=== PATIENT | female | born 1940 | race Caucasian/White ===

== ENCOUNTER 2017-10-27 05:04 | Inpatient (IN) ==
[2017-10-21 15:58] LABS: Appearance,Urine CLEAR; Bacteria,Urine 0 /hpf (0); Bilirubin,Urine NEG (NEG); Color,Urine YELLOW; Glucose,Urine (UA) NEGATIVE (NEG); Leukocyte Esterase,Urine 250 /uL (NEG); Mucus,Urine FEW /hpf (0); Protein,Urine NEG (NEG); Specific Gravity,Urine 1.014 (1.000-1.035); Urine Blood NEG mg/dL (<0.03); Urine RBC 5 /hpf (0-1); Urine Squamous Epithelial Cell 2 /hpf (0-4); Urine WBC 16 /hpf (0-4); Urobilinogen,Urine NEG (NEG)
[2017-10-21 18:19] LABS: Basophils # (Auto) 0 K/mcL (0.0-0.3); Basophils % (Auto) 0.5 % (0.0-2.0); Eosinophils # (Auto) 0.1 K/mcL (0.0-0.7); Eosinophils % (Auto) 1.5 % (0.0-7.0); Granulocytes % (Auto) 67.6 % (38.0-78.0); Lymphocytes # (Auto) 2.1 K/mcL (1.5-4.8); Mean Cell Volume 89.8 fL (80.0-100.0); Mean Corpuscular HGB Conc 34.1 g/dL (31.0-36.0); Mean Corpuscular Hemoglobin 30.6 pg (26.0-34.0); Monocytes # (Auto) 0.5 K/mcL (0.1-0.9); Monocytes % (Auto) 5.4 % (1.0-12.0); Platelet Count 241 K/mcL (140-440); Red Cell Distribution Width 13.6 % (11.5-14.5)
[2017-10-21 19:16] LABS: Blood Urea Nitrogen 14 mg/dl (8-23)
[2017-10-27 06:52] LABS: Appearance,Urine CLEAR; Bacteria,Urine 0 /hpf (0); Bilirubin,Urine NEG (NEG); Color,Urine YELLOW; Glucose,Urine (UA) NEGATIVE (NEG); Leukocyte Esterase,Urine NEG /uL (NEG); Mucus,Urine FEW /hpf (0); Protein,Urine NEG (NEG); Specific Gravity,Urine 1.015 (1.000-1.035); Urine Blood 0.03 mg/dL (<0.03); Urine Hyaline Cast 31 /lpf (0-2); Urine RBC 4 /hpf (0-1); Urine Squamous Epithelial Cell < 1 /hpf (0-4); Urine WBC 2 /hpf (0-4); Urobilinogen,Urine NEG (NEG)
[2017-10-27] MEDS ORDERED: CELECOXIB 200 MG CAPSULE PO SCH (07:00)
[2017-10-27] MEDS ORDERED: 0.9 % SODIUM CHLORIDE 9 ML, KETOROLAC 30 MG, ROPIVACAINE HCL/PF 49.5 ML, EPINEPHrine 0.... IJ SCH (07:00)
[2017-10-27] MEDS ORDERED: ceFAZolin 1 GM VIAL IV SCH (07:00)
[2017-10-27] MEDS ORDERED: oxyCODONE 10 MG TAB.ER.12H PO SCH (07:00)
[2017-10-27] MEDS ORDERED: PREGABALIN 75 MG CAPSULE PO SCH (07:00)
[2017-10-27] MEDS ORDERED: ROPIVACAINE HCL/PF 20 ML VIAL IJ ONE (07:40)
[2017-10-27] MEDS ORDERED: PROPOFOL 200 MG/20 ML VIAL IV ONE (07:40)
[2017-10-27] MEDS ORDERED: GLYCOPYRROLATE 0.2 MG/ML VIAL IV ONE (07:40)
[2017-10-27] MEDS ORDERED: ONDANSETRON 4 MG/2 ML VIAL IV ONE (07:40)
[2017-10-27] MEDS ORDERED: ePHEDrine 50 MG/ML AMPUL IV ONE (07:40)
[2017-10-27] MEDS ORDERED: DEXAMETHASONE 10 MG/ML VIAL IV ONE (07:40)
[2017-10-27] MEDS ORDERED: TRANEXAMIC ACID 1,000 MG/10 ML VIAL IV ONE ×2 (07:40→09:26)
[2017-10-27] MEDS ORDERED: MIDAZOLAM 5 MG/5 ML VIAL IV ONE (07:40)
[2017-10-27] MEDS ORDERED: PHENYLEPHRINE 10 MG/ML VIAL IV ONE (07:40)
[2017-10-27] MEDS ORDERED: LIDOCAINE HCL/PF 100 MG/5 ML SYRINGE IV ONE (07:40)
[2017-10-27] MEDS ORDERED: ePHEDrine 50 MG/ML AMPUL IV PRN (08:27)
[2017-10-27] MEDS ORDERED: fentaNYL 100 MCG/2 ML VIAL IV PRN (08:27)
[2017-10-27] MEDS ORDERED: METHOCARBAMOL 1,000 MG/10 ML VIAL IV PRN (08:27)
[2017-10-27] MEDS ORDERED: FLUMAZENIL 0.1 MG/ML ML IV PRN (08:27)
[2017-10-27] MEDS ORDERED: METOPROLOL TARTRATE 5 MG/5 ML VIAL IV PRN (08:27)
[2017-10-27] MEDS ORDERED: PROMETHAZINE 25 MG/ML VIAL IV PRN (08:27)
[2017-10-27] MEDS ORDERED: ATROPINE SULFATE 0.4 MG/ML VIAL IV PRN (08:27)
[2017-10-27] MEDS ORDERED: MEPERIDINE 25 MG/ML SYRINGE IV PRN (08:27)
[2017-10-27] MEDS ORDERED: NALOXONE HCL 0.4 MG/ML VIAL IV PRN (08:27)
[2017-10-27] MEDS ORDERED: diphenhydrAMINE 50 MG/ML VIAL IV PRN (08:27)
[2017-10-27] MEDS ORDERED: IPRATROPIUM/ALBUTEROL 3 ML AMPUL.NEB NEB PRN (08:27)
[2017-10-27] MEDS ORDERED: ONDANSETRON 4 MG/2 ML VIAL IV PRN ×2 (08:27→09:26)
[2017-10-27] MEDS ORDERED: LACTATED RINGERS 1,000 ML IV SCH (08:30)
[2017-10-27] MEDS ORDERED: ACETAMINOPHEN 1,000 MG/100 ML BOTTLE IV SCH (08:30)
[2017-10-27] MEDS ORDERED: MAGNESIUM HYDROXIDE 30 ML ORAL.SUSP PO PRN (09:26)
[2017-10-27] MEDS ORDERED: BISACODYL 10 MG SUPP.RECT PR PRN (09:26)
[2017-10-27] MEDS ORDERED: FLEETS ADULT ENEMA PR PRN (09:26)
[2017-10-27] MEDS ORDERED: BENZOCAINE/MENTHOL 1 LOZENGE PO PRN (09:26)
[2017-10-27] MEDS ORDERED: POLYETHYLENE GLYCOL 3350 17 GM PACKET PO PRN (09:26)
--- NOTE | 2017-10-27 09:26 | Brief Operative Note ---
Date of procedure: 10/27/17 Pre-op diagnosis: Left knee DJD Post-op diagnosis: same Procedure: Left robotic assisted total knee arthroplasty Grafts/Implants: Yes (Maryse Triathlon CR 4 femur, 4 tibia, 9mm insert, 36 patella) Anesthesia: spinal, GLMA Findings: arthritis Complications: none Surgeon: Hernesto Escobar Marketing Data Specialist: Costa Feng Estimated blood loss (cc): 30 Specimens Removed/Pathology: none sent Condition: stable Disposition: PACU
--- NOTE | 2017-10-27 10:05 | Operative Note ---
DATE OF OPERATION: 10/27/2017 PREOPERATIVE DIAGNOSIS: Left knee osteoarthritis. POSTOPERATIVE DIAGNOSIS: Left knee osteoarthritis. PROCEDURE PERFORMED: Left robotic-assisted total knee arthroplasty placing a Maryse Triathlon size 4 cruciate retaining femoral component, size 4 tibial baseplate, a 9 mm X3 tibial insert with a 36 mm patellar button. SURGEON: Hernesto Escobar M.D. COST MANAGER: Ananya Orantes PA-C. ANESTHESIA: Spinal plus general. DRAINS: None. SPECIMENS: Bone cuts which were discarded. BLOOD LOSS: 50 mL. COMPLICATIONS: None. POSTOPERATIVE CONDITION: Stable. INDICATIONS FOR SURGERY: This is a 77-year-old female with left knee pain and radiographs showing advanced [id number] arthrosis. FINDINGS AT SURGERY: She did have advanced arthritis. Post implantation showed good limb alignment, stability, and patellar tracking. PROCEDURE IN DETAIL: The patient had been seen preoperatively. Informed consent had been obtained after discussion of risks and benefits of surgery. Risks including, but not limited to, bleeding; infection; injury to nerves, blood vessels, and other surrounding structures; anesthetic risks; incomplete or no resolution of symptoms; heart attack, stroke or . She understood these risks and wished to proceed. Correct operative site was marked and then patient received spinal anesthesia. She was then taken to the operating room and LMA general given. Left lower extremity was carefully prepped and draped in normal sterile fashion. A time-out was performed verifying patient name, operative site, and plan. Esmarch was used to exsanguinate the extremity and tourniquet was inflated. Midline incision was made with a scalpel through skin and subcutaneous tissue. Irrisept was irrigated and then a medial parapatellar arthrotomy made. Subperiosteal exposure was done of the anterior medial tibia with Bovie. Fat pad was removed and then anterior horns of the menisci removed. We then placed our femoral and tibial checkpoints and then made two stab incisions over the femur and two over the tibia, and bicortical pins were placed and the arrays were connected. We then did our hip center of rotation check, as well as green probe to the medial and lateral malleoli and double-checks of our checkpoints. We then used the blue probe to do our mapping. We then removed osteophytes and checked our flexion-extension gaps. We adjusted implants until we had 17 mm gaps everywhere except for the flexion lateral which was 16 mm. Patellar tracking looked like it would be good, so we went ahead and used the robotic arm to perform our bone cuts. Tibia was subluxed forward. Tibial component was positioned and externally rotated as bone coverage would allow. This was pinned into place and a boss reamer and keel punch used to prepare, and then a keeled tibial trial was placed. Femur was elevated and posterior osteophytes removed with curved osteotome and curet, and then femoral component was impacted. This was lateralized as much as bone coverage would allow and pinned into place. The peg holes were drilled and then a 9 insert trial was placed. This was very snug, and the knee had about 4 degrees short of full extension. We then prepared our patella using freehand technique and then sizing this to a 36. This was medialized maximally. Holes were drilled and then the patellar trial placed. A lateral facetectomy was performed. We checked our patellar tracking, which was good, so we went ahead and removed implant trials. Definitive implants were opened. We irrigated with Irrisept. After a minute we pulse lavaged and then cemented the tibia followed by femur. Excess cement was removed and then the 9 insert trial was placed. The knee was taken into extension and the patella was cemented. While cement was hardening, the joint was filled with Irrisept. We then removed our checkpoints and injected pain cocktail in the pericapsular and subcutaneous tissues. Once cement had fully hardened, we flexed the knee up and did a final inspection and removal of cement. We removed the 9 insert trial, injected in the posterior medial capsule, and then impacted the 9 insert. The knee was then irrigated copiously with saline and then placed in about 45 degrees of flexion. Interrupted [id number] #2 FiberWire sutures were used around the superior quadrant of the patella, #1 Vicryl [id number] around the inferior quadrant, running #1 Vicryl for patellar tendon and quad tendon. Checkpoints had been removed prior to closure. We did a final Irrisept irrigation and then 2-0 Monocryl and shira for skin. The pins were removed and shira used for closure there. Xeroform and sterile dressing were applied. Tourniquet was released. The patient was awakened, extubated, and transferred to recovery in stable condition. KAYLA:maria d Job ID: [id number] Doc ID: [id number] Hernesto Escobar MD
--- NOTE | 2017-10-27 10:13 | XRay Report ---
HISTORY: Postop knee replacement FINDINGS: There is a well positioned total knee prosthesis. No fracture is present and there are no abnormal soft tissue calcifications around the joint. IMPRESSION: Well-positioned left knee prosthesis Interpreted and Authenticated by: Maximino Aragon 10/27/17
--- NOTE | 2017-10-27 10:59 | General Surgery Progress Note ---
Surgical - Auxillary Note - Subjective Patient Information: Note initiated : 10/27/17 at 10:57 am Service Date, if different from initiated Date: [] Patient: Monika Rey 77 y/o F admitted on 10/27/17 for Left Total Knee Arthroplasty ector. 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 12 lead repeated, no significant change. Nausea treated, improved. Stable for floor disposition. DIETER]
[2017-10-27] MEDS: 0.9 % SODIUM CHLORIDE 1,000 ML IV SCH ×2 (11:19→18:27)
[2017-10-27] MEDS: KETOROLAC 15 MG/ML VIAL IV SCH ×3 (12:10→23:22)
[2017-10-27] MEDS: 0.9 % SODIUM CHLORIDE 10 ML SYRINGE IV SCH ×2 (12:25→20:35)
[2017-10-27] MEDS ORDERED: PROMETHAZINE 25 MG/ML VIAL IV ONE (12:54)
[2017-10-27] MEDS ORDERED: 0.9 % SODIUM CHLORIDE 500 ML IV ONE (12:54)
[2017-10-27] MEDS: ceFAZolin 1 GM VIAL IV SCH ×2 (15:22→23:15)
[2017-10-27] MEDS: ASPIRIN 325 MG ENTERIC COATED TABLET PO SCH (20:35)
[2017-10-27] MEDS: DOCUSATE SODIUM 100 MG CAPSULE PO SCH (20:35)
[2017-10-27] MEDS: HYDROCODONE/APAP 7.5/325MG TABLET PO PRN (20:35)
[2017-10-27] MEDS ORDERED: SIMVASTATIN 20 MG TABLET PO SCH (21:00)
[2017-10-27] MEDS ORDERED: SENNOSIDES 1 TABLET PO SCH (21:00)
[2017-10-28] MEDS: 0.9 % SODIUM CHLORIDE 10 ML SYRINGE IV SCH (05:39)
[2017-10-28] MEDS: KETOROLAC 15 MG/ML VIAL IV SCH (05:39)
[2017-10-28] MEDS: 0.9 % SODIUM CHLORIDE 1,000 ML IV SCH (05:39)
[2017-10-28] MEDS: HYDROCODONE/APAP 7.5/325MG TABLET PO PRN ×2 (05:40→10:48)
[2017-10-28] MEDS ORDERED: LEVOTHYROXINE 100 MCG TABLET PO SCH (07:30)
[2017-10-28] MEDS ORDERED: LEVOTHYROXINE SODIUM 175 MCG TABLET PO SCH (07:30)
[2017-10-28] MEDS ORDERED: LEVOTHYROXINE 75 MCG TABLET PO SCH (07:30)
--- NOTE | 2017-10-28 07:43 | Discharge Summary ---
Ortho Discharge Plan - General - Patient Instructions Diet: Regular Diet Activity: activity as tolerated, weight bearing as tolerated Dressing Care: Leeanna Alejandro - leave on for 5 days - Follow Up Plan Follow Up Appointments: Costa Feng PA-C [Physician Gas Appliance Repairer] - Disposition: Home, Self-Care Prognosis: Good Rehab Potential: Good - Orders For Discharge Additional Discharge Orders: Physical Therapy at Discharge - TKA Location: None Selected Toilet Riser Discharge Order Location: None Selected Walker Location: None Selected
[2017-10-28] MEDS: DOCUSATE SODIUM 100 MG CAPSULE PO SCH (08:30)
[2017-10-28] MEDS: ASPIRIN 325 MG ENTERIC COATED TABLET PO SCH (08:31)
[2017-10-28] MEDS ORDERED: VITAMIN D3 1,000 UNIT TABLET PO SCH (09:00)
[2017-10-28] MEDS ORDERED: MULTIVIT,THER IRON,CA,FA & MIN 1 TABLET PO SCH (09:00)
[2017-10-28] MEDS ORDERED: CYANOCOBALAMIN (VITAMIN B-12) 500 MCG TABLET PO SCH (09:00)
[2017-10-28] MEDS ORDERED: TRIAMTERENE/HYDROCHLOROTHIAZID 1 TABLET PO SCH (09:00)
== END 2017-10-28 11:50 | disposition home or self-care (01) | DRG 470 ==
LOC: EDBD → MEDSUR 05:04
PROVIDERS: ADMIT Orthopaedic Surgery; ATTEND Orthopaedic Surgery